=== PATIENT | female | born 1945 | race Caucasian/White ===

== ENCOUNTER 2022-04-12 19:40 | Emergency (ER) | payer OTHER ==
[2022-04-12 19:46] VITALS: BP 170/76; PULSE 88; RESP 18; TEMP 98.1; BMI 24.9
[2022-04-12] MEDS ORDERED: ACETAMINOPHEN 500 MG TABLET (FP) PO ONE (20:43)
[2022-04-12] MEDS ORDERED: ACETAMINOPHEN 500 MG TABLET (FP) ONE (20:44)
== END 2022-04-12 21:29 | disposition home or self-care (01) ==
LOC: JER 19:40 → JERFT 19:40
PROC: 2W3KX1Z Immobilization of Left Finger using Splint (ICD-10-PCS; principal; 2022-04-12)
DX: S62.647A Nondisplaced fracture of proximal phalanx of left little finger, initial encounter for closed fracture (principal); W22.8XXA Striking against or struck by other objects, initial encounter
CPT/HCPCS: 73130-TC-LT-FY; 99283-25

== ENCOUNTER 2024-04-01 13:32 | Emergency (ER) | payer OTHER ==
[2024-04-01 13:43] VITALS: RESP 20; TEMP 98.4; BMI 25.7
[2024-04-01 17:05] VITALS: BP 150/74; PULSE 70
== END 2024-04-01 17:05 | disposition home or self-care (01) ==
LOC: JER 13:32
DX: S00.01XA Abrasion of scalp, initial encounter (principal); W06.XXXA Fall from bed, initial encounter
CPT/HCPCS: 70450-TC; 99284-25